=== PATIENT | female | born 1985 | race Caucasian/White ===

== ENCOUNTER → 2016-10-18 | Outpatient (CLI) | payer OTHER ==
--- NOTE | 2016-10-18 10:52 | USB ---
Reason for exam: follow-up at short interval from prior study. History: Taking hormonal contraceptives for 3 years beginning at age 23. Physical Findings: Nurse Summary: 2cm non tender lump right axilla (nurse mm). US Breast BILAT Right breast ultrasound includes all four quadrants, the retroareolar region and axilla. Finding demonstrates a 0.6 x 0.5 x 0.2cm oval lesion to small to characterize at 10 o'clock. Left breast ultrasound includes all four quadrants, the retroareolar region and axilla. Finding demonstrates a 0.9 x 0.9 x 0.2cm cystic lesion at 2 o'clock, a 0.3 x 0.5 x 0.1cm oval lesion too small to characterize at 6 o'clock and a 0.4 x 0.4 x 0.2cm oval, hypoechoic lesion at 12:30. These results were verbally communicated with the patient and result sheet given to the patient on 10/18/16. ASSESSMENT: Probably benign, BI-RAD 3 RECOMMENDATION: Ultrasound of the right breast in 6 months. Manage on a clinical basis with regard to palpable of prior.
== END | disposition home or self-care (01) ==
LOC: RADUSWWP 08:56
PROVIDERS: ATTEND Surgery
DX: R92.8 Other abnormal and inconclusive findings on diagnostic imaging of breast (principal)

== ENCOUNTER → 2016-11-15 | Outpatient (CLI) | payer OTHER ==
--- NOTE | 2016-11-15 14:01 | US ---
EXAMINATION TYPE: US thyroid st tissue head/neck DATE OF EXAM: 11/15/2016 COMPARISON: NONE CLINICAL HISTORY: E04.1 L Thyroid Nodule. Thyroid nodule. GLAND SIZE: Right Lobe: 4.7 x 1.6 x 1.3 cm Overall Parenchyma: homogenous Left Lobe: 4.0 x 1.0 1.4 cm Overall Parenchyma: homogeneous Isthmus Thickness: 0.36 cm NODULES RIGHT: # of nodules measured on right: 1 1. .6 X .6 x .6 cm hypoechoic solid nodule at the mid pole with well-defined margins; This nodule is wider than tall and shows intranodular vascularity. LEFT: # of nodules measured on left: 0 ISTHMUS: # of nodules measured in the isthmus: 1 1. 2.2 X .7 x 2.1 cm hypoechoic solid nodule. This nodule is wider than tall and shows intranodular vascularity. Bilateral neck scanned, no evidence of lymphadenopathy. IMPRESSION: There are 2 thyroid nodules with a dominant 2.2 cm isthmus nodule.
--- NOTE | 2016-11-15 14:04 | US ---
EXAMINATION TYPE: US pelvic complete DATE OF EXAM: 11/15/2016 COMPARISON: NONE CLINICAL HISTORY: N93.8 Dysfunc Uterine Bleed. Pain TECHNIQUE: Transabdominal (TA) Date of LMP: EXAM MEASUREMENTS: Uterus: 11.5 x 3.0 x 5.7 cm Endometrial Stripe: 0.58 cm Right Ovary: 2.6 x 1.6 x 1.8 cm Left Ovary: 3.1 x 1.9 x 2.5 cm 1. Uterus: Anteverted 2. Endometrium: wnl 3. Right Ovary: wnl 4. Left Ovary: wnl Spectral, color and waveform doppler imaging shows good arterial and venous flow within the ovaries ; there is no evidence for ovarian torsion. 5. Bilateral Adnexa: wnl 6. Posterior cul-de-sac: Small amount of fluid visualized. IMPRESSION: NORMAL PELVIC ULTRASOUND.
== END | disposition home or self-care (01) ==
LOC: RADUSWWP 11:53
PROVIDERS: ATTEND Obstetrics & Gynecology
DX: E04.2 Nontoxic multinodular goiter (principal); N93.8 Other specified abnormal uterine and vaginal bleeding
CPT/HCPCS: 76536; 76856

== ENCOUNTER → 2016-11-20 | Outpatient (CLI) | payer OTHER ==
[2016-11-20 16:04] LABS: Follicle Stimulating Hormone 3.4 mIU/mL; Prolactin 14.8 ng/mL (3.0-18.6)
== END | disposition home or self-care (01) ==
LOC: LABWHC1 15:07
PROVIDERS: ATTEND Obstetrics & Gynecology
DX: N93.8 Other specified abnormal uterine and vaginal bleeding (principal)
CPT/HCPCS: 36415; 83001; 83002; 84146; 84443

== ENCOUNTER 2016-12-14 12:21 | Day surgery (SDC) | payer OTHER ==
[2016-12-14] MEDS ORDERED: ALPRAZolam 0.5 MG TAB PO ONE (12:30)
[2016-12-14 12:55] VITALS: RESP 16; TEMP 97.6
[2016-12-14 13:53] VITALS: BP 116/70; PULSE 84
--- NOTE | 2016-12-14 14:25 | US ---
ULTRASOUND GUIDED FNA THYROID BIOPSY: CLINICAL HISTORY: Right isthmus nodule FINDINGS: The procedure was explained to the patient. The risks, complications, benefits and alternatives were discussed and any questions were answered. Informed consent was obtained. Patient was placed supin e on the ultrasound table and prepped and draped in the usual sterile fashion. Utilizing a 25 gauge needle, five passes were made into the requested nodule. Patient was stable throughout the procedure. Pathology is pending. All elements of maximal barrier technique were utilized. IMPRESSION: 1. Successful ultrasound guided FNA thyroid biopsy.
== END 2016-12-14 13:44 | disposition home or self-care (01) ==
LOC: RADPROMAIN 12:21
PROVIDERS: ATTEND Surgery
DX: D34 Benign neoplasm of thyroid gland (principal)
CPT/HCPCS: 10022; 76942; 84439; 84443; 84481; 88173; 88305

== ENCOUNTER → 2017-04-26 | Outpatient (CLI) | payer OTHER ==
[2017-04-26 11:29] LABS: Calcium 9.8 mg/dL (8.4-10.2); Potassium 4.2 mmol/L (3.5-5.1)
== END | disposition home or self-care (01) ==
LOC: LABWHC1 11:01
PROVIDERS: ATTEND Nurse Practitioner Family
DX: E83.51 Hypocalcemia (principal)
CPT/HCPCS: 36415; 80051; 82310

== ENCOUNTER → 2017-07-24 | Outpatient (CLI) | payer OTHER ==
[2017-07-24 14:08] LABS: ALT 19 U/L (9-52); AST 21 U/L (14-36); Alkaline Phosphatase 36 U/L (38-126); Anion Gap 9 mmol/L; Blood Urea Nitrogen 12 mg/dL (7-17); Calcium 8.9 mg/dL (8.4-10.2); Carbon Dioxide 28 mmol/L (22-30); Chloride 105 mmol/L (98-107); Glucose 92 mg/dL (74-99); Sodium 142 mmol/L (137-145); Total Bilirubin 0.3 mg/dL (0.2-1.3); Total Protein 6.3 g/dL (6.3-8.2)
[2017-07-24 14:21] LABS: T4, Free (Free Thyroxine) 1.48 ng/dL (0.78-2.19)
== END | disposition home or self-care (01) ==
LOC: LABWHC1 13:07
PROVIDERS: ATTEND Internal Medicine
DX: E89.0 Postprocedural hypothyroidism (principal)
CPT/HCPCS: 36415; 80053; 84439; 84443

== ENCOUNTER 2019-06-20 12:27 | Emergency (ER) | payer OTHER ==
[2019-06-20 12:41] VITALS: TEMP 98.2
[2019-06-20] MEDS ORDERED: SODIUM CHLORIDE 0.9% 1,000 ML IV ONE (13:18)
--- NOTE | 2019-06-20 13:40 | ED ---
General Adult HPI <Raul Blake - Last Filed: 06/20/19 16:32> - General Source: patient, RN notes reviewed Mode of arrival: ambulatory Limitations: no limitations <Garcia Corona - Last Filed: 06/20/19 16:56> - General Chief complaint: Vaginal Bleeding Stated complaint: Vaginall bleeding Time Seen by Provider: 06/20/19 12:58 - History of Present Illness Initial comments: 33-year-old female resents to the emergency determine for a chief combative vaginal bleeding. Patient states that on 05/05/2019 she had a medication-induced elective . States she has had bleeding since that time. States it has been generally mild in nature. States she did have 2 days about a few weeks ago she didn't have any bleeding but has had bleeding since. Today patient started to have increased bleeding and clotting and pelvic cramping. Patient states she had another about one year ago that she had have a procedure for but has not had any complications with that. She does not have an GLOBAL ACCOUNT MANAGER in this area. She missed her follow-up appointment at this facility. Patient denies any lightheadedness chest pain or shortness of breath. Patient has no other complaints at this time including shortness of breath, chest pain, abdominal pain, nausea or vomiting, headache, or visual changes. (Garcia Corona) - Related Data Home Medications Medication Instructions Recorded Confirmed Non Formulary Drug 1 tab PO DAILY 12/14/16 12/14/16 Calcium Carbonate/Vitamin D3 1 each PO 04/28/17 04/28/17 [Calcium 500-Vit D3 200 Tablet] Levothyroxine Sodium [Synthroid] 100 mcg PO DAILY 04/28/17 04/28/17 Allergies Allergy/AdvReac Type Severity Reaction Status Date / Time No Known Allergies Allergy Verified 12/14/16 13:06 Review of Systems ROS Other: All systems not noted in ROS Statement are negative. <Raul Blake - Last Filed: 06/20/19 16:32> ROS Other: All systems not noted in ROS Statement are negative. <Garcia Corona - Last Filed: 06/20/19 16:56> ROS Statement: Those systems with pertinent positive or pertinent negative responses have been documented in the HPI. Past Medical History Past Medical History: Thyroid Disorder History of Any Multi-Drug Resistant Organisms: None Reported Past Surgical History: No Surgical Hx Reported Additional Past Surgical History / Comment(s): thyroidectomy Past Anesthesia/Blood Transfusion Reactions: No Reported Reaction Past Psychological History: Anxiety, Depression Smoking Status: Current every day smoker Past Alcohol Use History: Occasional Past Drug Use History: Marijuana - Past Family History Mother Family Medical History: Thyroid Disorder <Garcia Corona - Last Filed: 06/20/19 16:56> General Exam Limitations: no limitations General appearance: alert, in no apparent distress Head exam: Present: atraumatic, normocephalic, normal inspection Eye exam: Present: normal appearance, PERRL, EOMI. Absent: scleral icterus, conjunctival injection, periorbital swelling ENT exam: Present: normal exam Neck exam: Present: normal inspection, full ROM. Absent: tenderness, meningismus, lymphadenopathy Respiratory exam: Present: normal lung sounds bilaterally. Absent: respiratory distress, wheezes, rales, rhonchi, stridor Cardiovascular Exam: Present: regular rate, normal rhythm, normal heart sounds. Absent: systolic murmur, diastolic murmur, rubs, gallop, clicks GI/Abdominal exam: Present: soft, normal bowel sounds. Absent: distended, tenderness, guarding, rebound, rigid External exam: Present: normal external exam. Absent: erythema, swelling, lesions, lacerations, ecchymosis Speculum exam: Present: vaginal bleeding (Bleeding noted from the cervix). Absent: normal speculum exam, erythema, vaginal discharge, cervical discharge, foreign body, tissue, laceration, other Neurological exam: Present: alert <Garcia Corona P - Last Filed: 06/20/19 16:56> Course Vital Signs 06/20/19 06/20/19 06/20/19 12:39 14:24 15:57 Temperature 98.2 F Pulse Rate 103 H 81 74 Respiratory 18 16 18 Rate Blood Pressure 122/62 111/73 117/74 O2 Sat by Pulse 100 99 98 Oximetry Medical Decision Making - Lab Data Result diagrams: 06/20/19 14:10 06/20/19 14:10 <Raul Blake - Last Filed: 06/20/19 16:32> - Lab Data Result diagrams: 06/20/19 14:10 06/20/19 14:10 <Garcia Corona - Last Filed: 06/20/19 16:56> - Medical Decision Making The patient was seen and examined. All diagnostics are reviewed. Case is discussed with Dr. Eldridge from OB. Case is also discussed with the PA and I agree with the findings as documented. (Raul Blake) Total stable. Patient well-appearing, nontoxic. CBC does show mild liekocytosis. Hgb stable. CMP unremarkable. Urinalysis shows greater than 182 red blood cells. White blood cells were likely reflective of red blood cells. Culture pending. Bleeding minimal on examination. No significant hemorrhage. HCG was detected at 344. Ultrasound was obtained which shows a thickened endometrium up to 1.6 cm which could relate to blood clot or to breathe. There is some complex fluid in the lower uterine segment and cervical canal. No adnexal mass. Dr. Blake evaluated patient and discussed this case with Dr. Echeverria. At this time would like to trend hCG and see her in the office at the end of next week. Likely thinks that the is still progressing. Patient unfortunately missed her follow-up where she had this medication prescribed. However Dr. Eldridge will see her in office next week. Pain controlled at this time. Patient will be discharged home. (Garcia Corona) - Lab Data Lab Results 06/20/19 06/20/19 06/20/19 Range/Units 14:10 14:10 14:10 WBC 10.8 H (3.8-10.6) k/uL RBC 4.21 (3.80-5.40) m/uL Hgb 12.4 (11.4-16.0) gm/dL Hct 37.6 (34.0-46.0) % MCV 89.2 (80.0-100.0) fL MCH 29.3 (25.0-35.0) pg MCHC 32.9 (31.0-37.0) g/dL RDW 13.2 (11.5-15.5) % Plt Count 225 (150-450) k/uL Neutrophils % 79 % Lymphocytes % 13 % Monocytes % 5 % Eosinophils % 1 % Basophils % 0 % Neutrophils # 8.6 H (1.3-7.7) k/uL Lymphocytes # 1.4 (1.0-4.8) k/uL Monocytes # 0.5 (0-1.0) k/uL Eosinophils # 0.1 (0-0.7) k/uL Basophils # 0.0 (0-0.2) k/uL Sodium 140 (137-145) mmol/L Potassium 4.2 (3.5-5.1) mmol/L Chloride 108 H (98-107) mmol/L Carbon Dioxide 25 (22-30) mmol/L Anion Gap 7 mmol/L BUN 12 (7-17) mg/dL Creatinine 0.62 (0.52-1.04) mg/dL Est GFR (CKD-EPI)AfAm >90 (>60 ml/min/1.73 sqM) Est GFR (CKD-EPI)NonAf >90 (>60 ml/min/1.73 sqM) Glucose 84 (74-99) mg/dL Calcium 9.5 (8.4-10.2) mg/dL Total Bilirubin 0.3 (0.2-1.3) mg/dL AST 20 (14-36) U/L ALT 8 (4-34) U/L Alkaline Phosphatase 43 (38-126) U/L Total Protein 6.3 (6.3-8.2) g/dL Albumin 4.0 (3.5-5.0) g/dL HCG, Quant 344.6 mIU/mL Urine Color Urine Appearance (Clear) Urine pH (5.0-8.0) Ur Specific [place] (1.001-1.035) Urine Protein (Negative) Urine Glucose (UA) (Negative) Urine Ketones (Negative) Urine Blood (Negative) Urine Nitrite (Negative) Urine Bilirubin (Negative) Urine Urobilinogen (<2.0) mg/dL Ur Leukocyte Esterase (Negative) Urine RBC (0-5) /hpf Urine WBC (0-5) /hpf Urine HCG, Qual (Not Detectd) Blood Type B Positive Blood Type Recheck B Pos Bld Type Recheck Status No Antibody Screen NEGATIVE Spec Expiration Date 06/23/2019230906/20/19 06/20/19 Range/Units 14:15 14:15 WBC (3.8-10.6) k/uL RBC (3.80-5.40) m/uL Hgb (11.4-16.0) gm/dL Hct (34.0-46.0) % MCV (80.0-100.0) fL MCH (25.0-35.0) pg MCHC (31.0-37.0) g/dL RDW (11.5-15.5) % Plt Count (150-450) k/uL Neutrophils % % Lymphocytes % % Monocytes % % Eosinophils % % Basophils % % Neutrophils # (1.3-7.7) k/uL Lymphocytes # (1.0-4.8) k/uL Monocytes # (0-1.0) k/uL Eosinophils # (0-0.7) k/uL Basophils # (0-0.2) k/uL Sodium (137-145) mmol/L Potassium (3.5-5.1) mmol/L Chloride (98-107) mmol/L Carbon Dioxide (22-30) mmol/L Anion Gap mmol/L BUN (7-17) mg/dL Creatinine (0.52-1.04) mg/dL Est GFR (CKD-EPI)AfAm (>60 ml/min/1.73 sqM) Est GFR (CKD-EPI)NonAf (>60 ml/min/1.73 sqM) Glucose (74-99) mg/dL Calcium (8.4-10.2) mg/dL Total Bilirubin (0.2-1.3) mg/dL AST (14-36) U/L ALT (4-34) U/L Alkaline Phosphatase (38-126) U/L Total Protein (6.3-8.2) g/dL Albumin (3.5-5.0) g/dL HCG, Quant mIU/mL Urine Color Red Urine Appearance Cloudy H (Clear) Urine pH 8.5 H (5.0-8.0) Ur Specific [place] 1.016 (1.001-1.035) Urine Protein 1+ H (Negative) Urine Glucose (UA) Negative (Negative) Urine Ketones Negative (Negative) Urine Blood Large H (Negative) Urine Nitrite Negative (Negative) Urine Bilirubin Negative (Negative) Urine Urobilinogen <2.0 (<2.0) mg/dL Ur Leukocyte Esterase Trace H (Negative) Urine RBC >182 H (0-5) /hpf Urine WBC 95 H (0-5) /hpf Urine HCG, Qual Detected (Not Detectd) Blood Type Blood Type Recheck Bld Type Recheck Status Antibody Screen Spec Expiration Date Disposition <Raul Blake J - Last Filed: 06/20/19 16:32> Is patient prescribed a controlled substance at d/c from ED?: No Time of Disposition: 16:53 <Garcia Corona P - Last Filed: 06/20/19 16:56> Clinical Impression: History of elective , Vaginal bleeding Disposition: HOME SELF-CARE Condition: Good Instructions (If sedation given, give patient instructions): Dysfunctional Uterine Bleeding (ED) Additional Instructions: Please follow up with Dr. Espinosa this coming Saturday. Call tomorrow to make an appointment and be sure to tell them you were seen in the emergency department and he recommended to see her next week. Repeat your blood work on so you have this ready. If you have any worsening symptoms such as increased bleeding or uncontrolled pain return to the emergency department. Referrals: Cynthia Park MD [Primary Care Provider] - 1-2 days Jacobo Espinosa MD [STAFF PHYSICIAN] - 1-2 days
[2019-06-20] MEDS ORDERED: MORPHINE SULFATE 4 MG/ML SYRINGE IVP STA (13:49)
[2019-06-20 14:36] LABS: Basophils % (A) 0 %; Eosinophils # (A) 0.1 k/uL (0-0.7); Eosinophils % (A) 1 %; HCT 37.6 % (34.0-46.0); HGB 12.4 gm/dL (11.4-16.0); Lymphocytes # (A) 1.4 k/uL (1.0-4.8); Lymphocytes % (A) 13 %; MCH 29.3 pg (25.0-35.0); MCHC 32.9 g/dL (31.0-37.0); MCV 89.2 fL (80.0-100.0); Mean Platelet Volume 7.2; Monocytes # (A) 0.5 k/uL (0-1.0); Monocytes % (A) 5 %; Neutrophils # (A) 8.6 k/uL (1.3-7.7); Neutrophils % (A) 79 %; Platelet Count 225 k/uL (150-450); RBC 4.21 m/uL (3.80-5.40); RDW 13.2 % (11.5-15.5); WBC 10.8 k/uL (3.8-10.6)
[2019-06-20 14:48] LABS: Appearance,Urine Cloudy (Clear); Bilirubin,Urine Negative (Negative); Blood,Urine Large (Negative); Color,Urine Red; Glucose,Urine (UA) Negative (Negative); Ketones,Urine Negative (Negative); Leukocyte Esterase,Urine Trace (Negative); Nitrite,Urine Negative (Negative); PH, Urine 8.5 (5.0-8.0); Protein,Urine 1+ (Negative); RBC,Urine >182 /hpf (0-5); Specific Gravity,Urine 1.016 (1.001-1.035); Urobilinogen,Urine <2.0 mg/dL (<2.0); WBC,Urine 95 /hpf (0-5)
[2019-06-20 14:50] LABS: ALT 8 U/L (4-34); AST 20 U/L (14-36); African American GFR (CKD) >90 (>60 ml/min/1.73 sqM); Alkaline Phosphatase 43 U/L (38-126); Anion Gap 7 mmol/L; Blood Urea Nitrogen 12 mg/dL (7-17); Calcium 9.5 mg/dL (8.4-10.2); Carbon Dioxide 25 mmol/L (22-30); Chloride 108 mmol/L (98-107); Glucose 84 mg/dL (74-99); Non-African American GFR(CKD) >90 (>60 ml/min/1.73 sqM); Potassium 4.2 mmol/L (3.5-5.1); Sodium 140 mmol/L (137-145); Total Bilirubin 0.3 mg/dL (0.2-1.3); Total Protein 6.3 g/dL (6.3-8.2)
[2019-06-20 15:05] LABS: HCG,Quantitative Serum 344.6 mIU/mL
--- NOTE | 2019-06-20 15:40 | US ---
EXAMINATION TYPE: US transvaginal DATE OF EXAM: 06/20/2019 COMPARISON: NONE CLINICAL HISTORY: elective medical 05/05/19, bleeding pain. AB 05/05 of 4.5wk fetus, pain an d bleeding ever since, A2 TECHNIQUE: TV. Transvaginal sonographic images Date of LMP: unknown EXAM MEASUREMENTS: Uterus: 10.5 x 6.1 x 5.3 cm Endometrial Stripe: 1.6 cm Right Ovary: 2.7 x 2.3 x 2.3 cm Left Ovary: not seen 1. Uterus: Anteverted wnl 2. Endometrium: thickened with internal debris and increased vascularity 3. Right Ovary: wnl 4. Left Ovary: not seen due to patients pain with pressure, and surrounding bowel gas Spectral, color and waveform doppler imaging shows good arterial and venous flow within the right o vary; there is no evidence for right ovarian torsion. 5. Bilateral Adnexa: wnl 6. Posterior cul-de-sac: wnl IMPRESSION: Thickened endometrium up to 1.6 cm. This could relate to blood clot and debris. There is some complex fluid in the lower uterine segment and cervical canal. No adnexal mass.
[2019-06-20 15:57] VITALS: RESP 18
[2019-06-20 17:35] VITALS: BP 118/72; PULSE 78
== END 2019-06-20 17:35 | disposition home or self-care (01) ==
LOC: EC 12:27
DX: N93.9 Abnormal uterine and vaginal bleeding, unspecified (principal); Z87.59 Personal history of other complications of pregnancy, childbirth and the puerperium; R93.89 Abnormal findings on diagnostic imaging of other specified body structures; E07.9 Disorder of thyroid, unspecified; F17.200 Nicotine dependence, unspecified, uncomplicated; Z79.890 Hormone replacement therapy
CPT/HCPCS: 99284; 96374; 96361; 36415; 86900; 86901; 80053; 85025; 86850; 81001; 81025; 84702; 93976; 76830; J2270

== ENCOUNTER 2021-02-21 15:39 | Emergency (ER) | payer OTHER ==
[2021-02-21 16:05] VITALS: TEMP 97.7
--- NOTE | 2021-02-21 17:59 | ED ---
Recheck HPI - General Chief Complaint: Recheck/Abnormal Lab/Rx Stated Complaint: Thyroid issues Time Seen by Provider: 02/21/21 16:23 Source: patient, RN notes reviewed, old records reviewed Mode of arrival: ambulatory Limitations: no limitations - History of Present Illness Initial Comments: Patient is a 35-year-old female with history of thyroidectomy, presenting to the emergency department requesting a refill of her Synthroid. Patient states she was dropped from her original PCP after missing 2 appointments and she has been without her Synthroid medication for about 8 months now. Patient is becoming really fatigued, feels off and really thinks her thyroid levels are increasing. Patient states she was able to get into a new PCPs office but does not have an appointment until May. She denies any chest pain or shortness of breath, no fevers or chills, no nausea or vomiting. She has no further complaints today. Her vitals are stable upon arrival. - Related Data Home Medications Medication Instructions Recorded Confirmed Non Formulary Drug 1 tab PO DAILY 12/14/16 12/14/16 Calcium Carbonate/Vitamin D3 1 each PO 04/28/17 04/28/17 [Calcium 500-Vit D3 200 Tablet] Previous Rx's Medication Instructions Recorded Levothyroxine Sodium [Synthroid] 100 mcg PO DAILY 30 Days #30 tab 02/21/21 Allergies Allergy/AdvReac Type Severity Reaction Status Date / Time No Known Allergies Allergy Verified 02/21/21 16:03 Review of Systems ROS Statement: Those systems with pertinent positive or pertinent negative responses have been documented in the HPI. ROS Other: All systems not noted in ROS Statement are negative. Past Medical History Past Medical History: Thyroid Disorder History of Any Multi-Drug Resistant Organisms: None Reported Past Surgical History: No Surgical Hx Reported Additional Past Surgical History / Comment(s): thyroidectomy Past Anesthesia/Blood Transfusion Reactions: No Reported Reaction Past Psychological History: Anxiety, Depression Past Alcohol Use History: Occasional Past Drug Use History: Marijuana - Past Family History Mother Family Medical History: Thyroid Disorder General Exam - General Exam Comments Initial Comments: GENERAL: Patient is well-developed and well-nourished. Patient is nontoxic and in no acute distress. HEAD: Atraumatic, normocephalic. EYES: Pupils equal round and reactive to light, extraocular movements intact, sclera anicteric, conjunctiva are normal. Eyelids were unremarkable. ENT: Moist mucous membranes. NECK: Normal range of motion, supple without lymphadenopathy or JVD. LUNGS: Unlabored respirations. Breath sounds clear to auscultation bilaterally and equal. No wheezes rales or rhonchi. HEART: Regular rate and rhythm without murmurs, rubs or gallops. ABDOMEN: Soft, nontender, normoactive bowel sounds. No guarding, no rebound. No masses appreciated. : Deferred MUSCULOSKELETAL: Normal extremities with adequate strength and normal range of motion, no pitting or edema. No clubbing or cyanosis. NEUROLOGICAL: Patient is alert and oriented x 3. SKIN: Warm, Dry, normal turgor, no rashes or lesions noted. Limitations: no limitations Course Vital Signs 02/21/21 16:01 Temperature 97.7 F Pulse Rate 79 Respiratory 16 Rate Blood Pressure 120/77 O2 Sat by Pulse 98 Oximetry Medical Decision Making - Medical Decision Making Patient is a 35-year-old female with history of thyroidectomy, requesting a refill with Synthroid medication. She's been off of it for about 8 months secondary to PCP changes. Vitals are stable, exam is normal. I did check her TSH today, 36.2. The patient will be given a prescription for Synthroid, I did urge her to contact her PCP for a recheck of this in 4-6 weeks. She is agreeable to this. Patient is stable for discharge. Return parameters were discussed with parents verbalized understanding. Case discussed with Dr. Davila. - Lab Data Lab Results 02/21/21 Range/Units 16:52 TSH 36.200 H (0.465-4.680) mIU/L Disposition Clinical Impression: Hypothyroidism, Encounter for medication refill Disposition: HOME SELF-CARE Condition: Stable Instructions (If sedation given, give patient instructions): Hypothyroidism (ED) Additional Instructions: Please return to the Emergency Department if symptoms worsen or any other concerns. Take medication as prescribed. Please follow-up with your primary care doctor in 4-6 weeks to recheck thyroid levels. Prescriptions: Levothyroxine Sodium [Synthroid] 100 mcg PO DAILY 30 Days #30 tab Is patient prescribed a controlled substance at d/c from ED?: No Referrals: Cynthia Park MD [Primary Care Provider] - 1-2 days Time of Disposition: 17:59
[2021-02-21 18:06] VITALS: BP 120/79; PULSE 74; RESP 18
[2021-02-21 18:21] LABS: T4, Free (Free Thyroxine) 0.71 ng/dL (0.78-2.19)
== END 2021-02-21 18:06 | disposition home or self-care (01) ==
LOC: EC 15:39
DX: E03.9 Hypothyroidism, unspecified (principal); Z76.0 Encounter for issue of repeat prescription; F12.90 Cannabis use, unspecified, uncomplicated; Z79.890 Hormone replacement therapy
CPT/HCPCS: 36415; 84439; 84443; 99282

== ENCOUNTER 2021-03-27 13:37 | Emergency (ER) | payer OTHER ==
--- NOTE | 2021-03-27 16:25 | ED ---
General Adult HPI - General Chief complaint: Skin/Abscess/Foreign Body Stated complaint: Abcess Time Seen by Provider: 03/27/21 15:43 Source: patient, RN notes reviewed, old records reviewed Mode of arrival: ambulatory Limitations: no limitations - History of Present Illness Initial comments: This is a 35-year-old female, well-appearing, alert and oriented 4, presents to the emergency room with multiple complaints. She states she has a history of a thyroidectomy and she needs a refill on her levothyroxine. She has not been able to get into a primary care doctor and has an appointment scheduled but it is not until May. She was here in the emergency room in the past and they gave her 30 day supply. She is also here because she has dental abscess and has a scheduled dental appointment on April 24 to have the teeth pulled. The third issue is that she has a small bump on her labia majora for the past 10 days. She states that it is hard to touch and she has been soaking it with no relief. There is no drainage or redness. She denies any fevers or vaginal discharge. She is a pack-a-day smoker. Severity scale (1-10): 5 Quality: constant Consistency: constant Treatments Prior to Arrival: none - Related Data Home Medications Medication Instructions Recorded Confirmed Non Formulary Drug 1 tab PO DAILY 12/14/16 12/14/16 Calcium Carbonate/Vitamin D3 1 each PO 04/28/17 04/28/17 [Calcium 500-Vit D3 200 Tablet] Previous Rx's Medication Instructions Recorded Levothyroxine Sodium [Synthroid] 100 mcg PO DAILY 30 Days #30 tab 03/27/21 Penicillin V Potassium [Pen Vee K] 500 mg PO Q6H 10 Days #40 tablet 03/27/21 Allergies Allergy/AdvReac Type Severity Reaction Status Date / Time No Known Allergies Allergy Verified 02/21/21 16:03 Review of Systems ROS Statement: Those systems with pertinent positive or pertinent negative responses have been documented in the HPI. ROS Other: All systems not noted in ROS Statement are negative. Past Medical History Past Medical History: Thyroid Disorder History of Any Multi-Drug Resistant Organisms: None Reported Past Surgical History: No Surgical Hx Reported Additional Past Surgical History / Comment(s): thyroidectomy Past Anesthesia/Blood Transfusion Reactions: No Reported Reaction Past Psychological History: Anxiety, Depression Smoking Status: Current every day smoker Past Alcohol Use History: Occasional Past Drug Use History: Marijuana - Past Family History Mother Family Medical History: Thyroid Disorder General Exam Limitations: no limitations General appearance: alert, in no apparent distress Head exam: Present: atraumatic, normocephalic, normal inspection Eye exam: Present: normal appearance, EOMI ENT exam: Present: normal exam, normal oropharynx, mucous membranes moist Expanded Mouth exam: Present: tongue normal, tongue elevation. Absent: drooling, trismus, muffled voice Teeth exam: Present: dental caries, dental tenderness # (#2 #15) Throat exam: negative: tonsillar erythema, tonsillar exudate, R peritonsillar mass, L peritonsillar mass Neck exam: Present: normal inspection, full ROM. Absent: tenderness, meningismus, lymphadenopathy Respiratory exam: Present: normal lung sounds bilaterally. Absent: respiratory distress, wheezes, rales, rhonchi, stridor Cardiovascular Exam: Present: regular rate, normal rhythm, normal heart sounds. Absent: systolic murmur, diastolic murmur, rubs, gallop, clicks GI/Abdominal exam: Present: soft, normal bowel sounds. Absent: distended, tenderness, guarding, rebound, rigid External exam: Present: lesions (Approximately 3 mm cystic type lesion on the right outer labia majora no erythema no drainage). Absent: erythema, swelling, lacerations, ecchymosis Extremities exam: Present: normal inspection, full ROM, normal capillary refill. Absent: tenderness, pedal edema, joint swelling, calf tenderness Back exam: Present: normal inspection, full ROM. Absent: tenderness, CVA tenderness (R), CVA tenderness (L) Neurological exam: Present: alert, oriented X3, CN II-XII intact Psychiatric exam: Present: normal affect, normal mood Skin exam: Present: warm, dry, intact, normal color. Absent: rash Course Vital Signs 03/27/21 03/27/21 14:52 16:28 Temperature 98.1 F 97.9 F Pulse Rate 80 87 Respiratory 18 16 Rate Blood Pressure 129/70 104/64 O2 Sat by Pulse 99 98 Oximetry Medical Decision Making - Medical Decision Making Patient's vital signs are stable. She presents to the emergency room for refill on her levothyroxine and antibiotics for her 3 dental abscesses. She has an appointment on April 24 to have teeth removed. She was also concerned about a lesion on her labia that has been present for 10 days. She denies any drainage or erythema or vaginal discharge. This seems to be a cystic lesion and she was directed to follow up with her INFORMATION ASSISTANT or primary care doctor. She states that she does have an appointment with a new primary care doctor in May. She was prescribed 30 days of levothyroxine, antibiotics for her dental abscess and directed to take Motrin as needed for pain. Case discussed with Dr. Carroll Disposition Clinical Impression: Dental abscess, Labial cyst, Medication refill Disposition: HOME SELF-CARE Condition: Good Additional Instructions: Keep your appointment with the dentist scheduled April 24 and contact your primary care doctor for refill on your levothyroxine and continuation of care for your hypothyroidism. Return to the emergency room with any new or worsening symptoms. Prescriptions: Penicillin V Potassium [Pen Vee K] 500 mg PO Q6H 10 Days #40 tablet Levothyroxine Sodium [Synthroid] 100 mcg PO DAILY 30 Days #30 tab Is patient prescribed a controlled substance at d/c from ED?: No Referrals: Cynthia Park MD [Primary Care Provider] - 1-2 days Time of Disposition: 16:21
[2021-03-27 16:30] VITALS: BP 104/64; PULSE 87; RESP 16; TEMP 97.9
== END 2021-03-27 16:30 | disposition home or self-care (01) ==
LOC: EC 13:37
DX: K04.7 Periapical abscess without sinus (principal); N90.7 Vulvar cyst; Z76.0 Encounter for issue of repeat prescription; F17.210 Nicotine dependence, cigarettes, uncomplicated; F12.90 Cannabis use, unspecified, uncomplicated; Z79.890 Hormone replacement therapy
CPT/HCPCS: 99283

== ENCOUNTER → 2021-09-06 | Outpatient (CLI) | payer OTHER ==
--- NOTE | 2021-09-06 19:18 | CONS ---
CONSULTATION DATE OF SERVICE: 09/06/2021 This 35-year-old lady has been evaluated in [facility] for loud snoring and excessive daytime sleepiness, possible obstructive sleep apnea-hypopnea syndrome. HISTORY OF PRESENT ILLNESS/SLEEP-WAKE EVALUATION: Patient's usual sleep schedule is from 9 or 10 p.m. until 6:30 a.m. on weekdays and until 7 a.m. on weekends. She does have problems with falling asleep, has a TV set in the bedroom. She usually sleeps on the side position. After falling asleep she wakes up around 7 times during the night with a dry mouth and nocturia. She has snoring. In the morning she wakes up tired. With 2 cups of coffee during the day, her Fourmile Sleepiness Scale is increased at 11. Usually she does not take naps, though. No history of hypnagogic hallucinations, sleep paralysis or cataplexy. PAST MEDICAL HISTORY: Positive for anxiety, depression, hypothyroid function. PAST SURGICAL HISTORY: Resection of thyroid for nodules. Pathology showed that the nodules were benign. Stented. MEDICATIONS: 1. Bupropion 150 mg once a day. 2. Levothyroxine 120 mcg once a day. 3. Escitalopram 5 mg once a day. SOCIAL HISTORY: Positive for smoking a pack a day for 15 years. The patient takes bupropion with a goal to stop smoking. Alcohol consumption occasional. FAMILY HISTORY: Thyroid problems. REVIEW OF SYSTEMS: Snoring, multiple awakenings from sleep, sleepiness during the day. No fevers. No double vision. No recent chest pain. No shortness of breath. No abdominal pain. No bleeding episodes. No blood in the urine. No seizure episodes. PHYSICAL EXAMINATION: GENERAL: Pleasant lady without distress. VITAL SIGNS: BP 118/53, HR 79, RR 16, height 5 feet 6 inches, weight 154.8 pounds, body mass index 24.8, temperature 97.8, oxygen saturation at room air 97%. HEENT: PERRLA, EOMI, evaluation of oropharynx showed tongue protrudes midline. Long uvula. Otherwise, position of soft palate is normal. NECK: Supple, no JVD. Thyroid is not palpable. Neck measures 14 inches in circumference. LUNGS: Clear to percussion and to auscultation. Good air exchange. No wheezing or rhonchi. HEART: S1, S2 regular. No murmurs, gallops, or rubs. ABDOMEN: Soft and nontender. Bowel sounds are present. No organomegaly appreciated. EXTREMITIES: No clubbing or cyanosis. SHE[employer] L[employer] OUT WORKER: Awake, alert, and oriented X3. Cranial nerves 2 to 7 intact. There is no fasciculation or atrophy. noted. No focal deficits observed. IMPRESSION: 1. Snoring, multiple awakenings from sleep up to 7 times with nocturia, sleepiness during the day, Fourmile Sleepiness Scale increased at 11; possible obstructive sleep apnea-hypopnea syndrome. 2. History of thyroid nodule, status post thyroid resection; hypothyroidism, on replacement with thyroid hormones. 3. History of anxiety. 4. History of depression. 5. History of smoking for 15 pack/years, trying to quit smoking. PLAN: 1. Polysomnography for evaluation of patient's breathing during sleep. 2. CPAP/BiPAP titration if sleep study confirms obstructive sleep apnea-hypopnea syndrome. 3. Preferable position during sleep on the side. 4. No driving if patient feels any sleepiness. 5. I will see patient for follow up visit to explain results of testing and following plan. Thank you very much for referring this patient for consultation. Sincerely, Randy Mariscal MD, PhD, FAASM Diplomat of [employer] Sleep Medicine [employer] of [employer] [facility] [place] SHARON / INGRID: [id number] /
== END ==
LOC: SLEEP 13:26
PROVIDERS: ATTEND Internal Medicine
DX: G47.8 Other sleep disorders (principal); R35.1 Nocturia; R06.83 Snoring; E03.9 Hypothyroidism, unspecified; R40.0 Somnolence; Z79.890 Hormone replacement therapy; F41.9 Anxiety disorder, unspecified; F32.A Depression, unspecified; Z87.891 Personal history of nicotine dependence
CPT/HCPCS: 99211

== ENCOUNTER → 2021-09-13 | Outpatient (CLI) | payer OTHER ==
--- NOTE | 2021-09-13 10:51 | MM ---
Reason for exam: clinical finding. Last mammogram was performed 6 years and 2 months ago. History: Patient has history of other cancer at age 32. Took hormonal contraceptives for 6 years beginning at age 23. Taking other hormone. Physical Findings: A clinical breast exam by your physician is recommended on an annual basis and results should be correlated with mammographic findings. MG Diagnostic Mammo w CAD [facility]SCAR Bilateral CC, MLO, and XCCL view(s) were taken. Prior study comparison: July 04, 2015, bilateral MG 3d diag mammo w/cad [facility]SCAR. March 27, 2012, CAD bilateral diagnostic mammogram. The breast tissue is heterogeneously dense. This may lower the sensitivity of mammography. There is no discrete abnormality including area of concern. No significant new findings when compared with previous films. Results were given to the patient verbally at the time of the exam. ASSESSMENT: Incomplete: need additional imaging evaluation, BI-RAD 0 RECOMMENDATION: Ultrasound of both breasts. Manage patient on a clinical basis.
--- NOTE | 2021-09-13 10:53 | USB ---
Reason for exam: additional evaluation requested from abnormal screening. History: Patient has history of other cancer at age 32. Took hormonal contraceptives for 6 years beginning at age 23. Taking other hormone. Physical Findings: A clinical breast exam by your physician is recommended on an annual basis and results should be correlated with mammographic findings. US Breast BILAT Right complete breast ultrasound includes all four quadrants, the retroareolar region and axilla. Finding demonstrates no cystic or solid lesion seen. Left complete breast ultrasound includes all four quadrants, the retroareolar region and axilla. Finding demonstrates a 9 x 4 x 7mm oval, cystic lesion at 1 o'clock and a 8 x 3 x 5mm oval, cystic lesion at 2 o'clock. Very dense breasts bilaterally. Results were given to the patient verbally at the time of the exam. ASSESSMENT: Benign, BI-RAD 2 RECOMMENDATION: Routine screening mammogram of both breasts in 1 year. Manage patient on a clinical basis.
== END | disposition home or self-care (01) ==
LOC: RADMAMWWP 09:41
PROVIDERS: ATTEND Family Medicine
DX: N60.02 Solitary cyst of left breast (principal)
CPT/HCPCS: 77066

== ENCOUNTER → 2023-07-12 | Outpatient (CLI) | payer OTHER ==
--- NOTE | 2023-07-12 08:40 | MM ---
Reason for Exam: Additional evaluation requested from prior study. Last mammogram was performed 1 year(s) and 10 month(s) ago. Patient History: Menarche at age 12. First Full-Term at age 20. Hormonal Contraceptives for 6 years from age 23 until age 29. Last menstrual period: 06/12/2023 Risk Values: Yahaira 5 year model risk: 0.4%. NCI Lifetime model risk: 9.1%. Prior Study Comparison: 03/27/2012 Bilateral Diagnostic Mammogram, [facility]. 07/04/2015 Bilateral Diagnostic Mammogram, [facility]. 09/13/2021 Bilateral Diagnostic Mammogram, [facility]. Tissue Density: The breast tissue is heterogeneously dense. This may lower the sensitivity of mammography. Findings: Analyzed By CAD. A 1.2 cm asymmetric density central right cc view middle depth incompletely disperses on additional views. A dense island of tissue is possible. This can be further evaluated on patient's ultrasounds that have already been ordered. No suspicious microcalcification or other discrete abnormality is seen. Nodular asymmetric density anterior superior right MLO view remains unchanged. Overall Assessment: Incomplete: need additional imaging evaluation, BI-RAD 0 Management: Diagnostic Breast Ultrasound of both breasts. As ordered. Electronically signed and approved by: Irene Matson M.D. Radiologist
--- NOTE | 2023-07-12 09:15 | USB ---
Reason for Exam: Clinical finding. Patient History: Menarche at age 12. First Full-Term at age 20. Hormonal Contraceptives for 6 years from age 23 until age 29. Risk Values: Yahaira 5 year model risk: 0.4%. NCI Lifetime model risk: 9.1%. Technique: Method: Whole Breast Handheld. Prior Study Comparison: 03/27/2012 Bilateral Diagnostic Mammogram, [facility]. 07/04/2015 Bilateral Diagnostic Mammogram, [facility]. 09/13/2021 Bilateral Diagnostic Mammogram, [facility]. Findings: The whole breast of both breasts, the axilla of both breasts and the retroareolar of both breasts were scanned. A complete US of all four quadrants of the bilateral breasts, axilla, and retro-areolar region were reviewed. Right: 6:00 position 4 cm from the nipple, there is a 9 x 7 x 6 mm debris-filled cyst. Dense tissue is present throughout. No other solid or cystic lesion. No axillary lymphadenopathy. Left: 12:00 position, 4 cm, result cyst measuring 8 x 8 x 4 mm, likely corresponding to a cyst measuring 9 mm on 09/13/2021. Dense tissue is present throughout. No other solid or cystic lesion. No axillary lymphadenopathy. Overall Assessment: Probably benign, BI-RAD 3 Management: Diagnostic Mammogram of the right breast in 6 months. Further clinical management of patient's bilateral breast pain. A clinical breast exam by your physician is recommended on an annual basis and results should be correlated with mammographic findings. This exam should not preclude additional follow-up of suspicious palpable abnormalities. Results were given to the patient verbally at the time of exam. Electronically signed and approved by: Irene Matson M.D. Radiologist
== END | disposition home or self-care (01) ==
LOC: RADMAMWWP 07:57
PROVIDERS: ATTEND Family Medicine
DX: N60.02 Solitary cyst of left breast (principal); N60.01 Solitary cyst of right breast; N64.4 Mastodynia
CPT/HCPCS: 77066; 76641; G0279; 77062